=== PATIENT | male | born 1940 | race Caucasian/White ===

== ENCOUNTER → 2017-11-24 | Outpatient (REF) | payer MEDICARE, OTHER | LOC: M LAB REF 10:53 | DX: D23.12 Other benign neoplasm of skin of left eyelid, including canthus (principal) | CPT/HCPCS: 88305 ==

== ENCOUNTER → 2018-01-01 | Outpatient (CLI) | payer MEDICARE, BC, OTHER | LOC: M RAD 15:04 | DX: G45.9 Transient cerebral ischemic attack, unspecified (principal); I73.9 Peripheral vascular disease, unspecified; I25.10 Atherosclerotic heart disease of native coronary artery without angina pectoris | CPT/HCPCS: 70544 ==

== ENCOUNTER → 2019-03-03 | Outpatient (REF) | payer MEDICARE, BC, OTHER ==
[~2019-03-03] MED LIST: ACET65TA; ACIPHEX; ALLEGRA-D; ASPI81TA85 PO; BETAMET; CENTRUM SILVER PO; CENTTAB PO; CICL0.776 EX; CLOTRIMAZOLE; D AMPHETAMINE PO; DEXADRINE; DYAZ37.5; FEXO30TA; FISH500C PO; GABA-843 PO; GUAIPOW; IRBE150T12 PO; LEVA500T; LEXA1TAB; MAGN64TASA PO; MELA1CAP2 PO; METF500T13 PO; NAPR500T; NAPR500T6 PO; NIZO2SHA EX; PROT1TAB2 PO; SUCR1TA PO; TACLOIN4 EX; TACLOIN4 TOP; TESS100C; TRIAMTERENE-HCTZ PO; VIIB40TA PO; VITA500055 PO; VITAMIN D; VITAMIN D50000 UNT; XOPEAER; ZYRT10CA PO; [UNRECOGNIZED DRUG - OTHER]; [UNRECOGNIZED DRUG - OTHER] PO; [UNRECOGNIZED DRUG - OTHER] PO
[2019-03-03 16:44] LABS: C REACTIVE PROTEIN QUANTITATIV 1.81 MG/DL (0.00-0.30); RHEUMATOID FACTOR QUANT < 10.0 IU/ML (<15.0)
[2019-03-11 00:08] LABS: ANTINUCLEAR ANTIBODIES DIRECT Negative (Negative); HLA-B27 Negative (.)
== END ==
LOC: M LABDRAW1 15:18
PROVIDERS: ATTEND Physician Assistant
DX: M47.817 Spondylosis without myelopathy or radiculopathy, lumbosacral region (principal)

== ENCOUNTER → 2019-04-14 | Outpatient (REF) | payer MEDICARE, OTHER | LOC: M LABDRAW1 18:10 | PROVIDERS: ATTEND Physician Assistant | DX: M47.817 Spondylosis without myelopathy or radiculopathy, lumbosacral region (principal) ==

== ENCOUNTER → 2021-03-30 | Outpatient (CLI) | payer MEDICARE, BC, OTHER ==
[~2021-03-30] MED LIST changes: -ASPI81TA85 PO; +ASPI81TA86 PO; +BARIUM SULFATE 700 MG TABLET (E-Z-DISK) As Ordered ONE; +CICL0.7733 EX; -CICL0.776 EX; +E-Z-PAQUE 96% w/w SUSP 176GM BTL As Ordered ONE; +GABA-282 PO; -GABA-843 PO; -IRBE150T12 PO; +IRBE150T7 PO; +VARIBAR NECTAR 40% w/v 240ML SUSP BTL As Ordered ONE; +VARIBAR PUDDING 40% w/v 230ML TUBE As Ordered ONE
--- NOTE | 2021-03-30 13:51 | REP ---
INDICATION: FOOD IN BRONCHUS CAUSING ASPHYXIATION, SOB COMPARISON: Multiple the latest 01/02/2016 TECHNIQUE: Limited noncontrast enhanced standard helical technique. FINDINGS: There is no mediastinal or hilar adenopathy. There are no pleural or pericardial effusions. There is no significant change in appearance of the imaged upper abdomen. The imaged osseous structures are within normal limits for the patient's age. Evaluation of the lung lindsey shows lung field hyperexpansion and cylindrical bronchiectasis with curvilinear parenchymal densities seen throughout the lung lindsey with basilar predominance. Emphysematous changes are seen in the lung apical regions right greater than left with multiple tiny pleural blebs and possible early honeycomb lung formation. IMPRESSION: Chronic lung field changes which have remained essentially stable compared to the prior exam. No definite new abnormal nodules, masses, or opacities have developed. Although there is no evidence of an obstructing endobronchial lesion CT is extremely limited in its capacity to detect small endobronchial lesions. If that is a clinical concern then pulmonary consultation with possible bronchoscopy is suggested. <Electronically signed by Tuan Siegel > 03/30/21 [id number]
--- NOTE | 2021-03-30 14:57 | REP ---
INDICATION: FOOD IN BRONCHUS CAUSING ASPHYXIATION, SOB. COMPARISON: None. TECHNIQUE: The procedure was performed by Aleah Dumont [facility], under the direct supervision of Dr. Mayen. The procedure was performed with Sayra Tabor from speech pathology present. 5 ml aliquots of thin, pudding, mixed fruit, soft food, hard food and pill consistency barium was administered. FINDINGS: No aspiration or penetration was visualized. The detailed report of this examination will be provided by speech pathology. IMPRESSION: Unremarkable cookie swallow, a detailed report will be provided by speech pathology. 2.0 minutes of fluoroscopy time was utilized for this procedure. Some fluoroscopic images are performed with last image hold technology. These images require no additional radiation <Electronically signed by Aleah Dumont > 03/30/21 [id number] <Electronically signed by Shaan Mayen > 03/30/21 [id number]
== END ==
LOC: M RAD 13:06
PROVIDERS: ATTEND Family Medicine
DX: T17.520A Food in bronchus causing asphyxiation, initial encounter (principal); R06.02 Shortness of breath

== ENCOUNTER 2021-05-02 10:39 | Outpatient (RCR) | payer MEDICARE, BC, OTHER ==
[~2021-05-02 10:39] MED LIST changes: -BARIUM SULFATE 700 MG TABLET (E-Z-DISK) As Ordered ONE; -E-Z-PAQUE 96% w/w SUSP 176GM BTL As Ordered ONE; -VARIBAR NECTAR 40% w/v 240ML SUSP BTL As Ordered ONE; -VARIBAR PUDDING 40% w/v 230ML TUBE As Ordered ONE
== END 2021-05-05 ==
LOC: M ST 10:39
PROVIDERS: ATTEND Family Medicine
DX: R13.11 Dysphagia, oral phase (principal)

== ENCOUNTER 2021-05-24 14:30 | Outpatient (RCR) | payer MEDICARE, BC, OTHER | END 2021-06-05 | LOC: M ST 14:30 | PROVIDERS: ATTEND Family Medicine | DX: R13.11 Dysphagia, oral phase (principal) ==

== ENCOUNTER 2021-06-21 10:58 | Outpatient (RCR) | payer MEDICARE, BC, OTHER | END 2021-07-05 | LOC: M ST 10:58 | PROVIDERS: ATTEND Family Medicine | DX: R13.11 Dysphagia, oral phase (principal) ==

== ENCOUNTER → 2021-08-23 | Outpatient (CLI) | payer MEDICARE, BC, OTHER ==
--- NOTE | 2021-08-23 16:06 | REP ---
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 TECHNIQUE: Real-time sonographic evaluation of the lower extremity arteries bilaterally with Doppler FINDINGS: All numeric values represent peak systolic velocities in cm/SEC On the right: The ankle brachial index is 0.9 WEIGH BOSS: 83.1 triphasic Profunda: 67.9 biphasic SFA proximal: 77.6 triphasic SFA Mid: 71.5 triphasic SFA distal: 76.6 triphasic Popliteal: 48.5 triphasic PEDRO LUIS proximal: 49.7 biphasic Tibioperoneal trunk: 33.9 triphasic LINUX ARCHITECT proximal: 37.9 triphasic LINUX ARCHITECT distal: 34.7 biphasic PEDRO LUIS distal: 11.8 biphasic Peroneal proximal: 40.5 triphasic Peroneal distal: 30.1 triphasic On the left: The ankle brachial index is 0.96 WEIGH BOSS: 54.9 triphasic Profunda: 60.6 biphasic SFA proximal: 51.3 triphasic SFA Mid: 78.5 triphasic SFA distal: 53.5 triphasic Popliteal: 47.5 triphasic PEDRO LUIS proximal: 61.3 triphasic Tibioperoneal trunk: 49.3 triphasic LINUX ARCHITECT proximal: 53.2 triphasic LINUX ARCHITECT distal: 36.7 biphasic PEDRO LUIS distal: 35.7 biphasic Peroneal proximal: 47.7 biphasic Peroneal distal: 41.4 biphasic A stenosis was seen in the right mid LINUX ARCHITECT. IMPRESSION: As above <Electronically signed by Tuan Siegel > 08/23/21 [id number]
== END ==
LOC: M RAD 14:13
PROVIDERS: ATTEND Surgery Vascular Surgery
DX: I70.213 Atherosclerosis of native arteries of extremities with intermittent claudication, bilateral legs (principal)

== ENCOUNTER 2022-02-05 13:35 | Emergency (ER) | payer MEDICARE, BC, OTHER ==
[2022-02-05 14:05] VITALS: BP 115/66
[2022-02-05] MEDS ORDERED: LIDOCAINE 5% (LIDODERM) PATCH TD ONE (14:55)
[2022-02-05] MEDS ORDERED: LIDO5DIS41 TOP (17:43)
[2022-02-05] MEDS ORDERED: DICL20GE TP (17:43)
[2022-02-05] MEDS ORDERED: **NOTE PATIENT COMMENT** MISC XX SCH (21:00)
== END 2022-02-05 18:25 | disposition home or self-care (01) ==
LOC: EDBD 13:35 → M ED 13:35
DX: S32.010A Wedge compression fracture of first lumbar vertebra, initial encounter for closed fracture (principal); S22.080A Wedge compression fracture of T11-T12 vertebra, initial encounter for closed fracture; W01.0XXA Fall on same level from slipping, tripping and stumbling without subsequent striking against object, initial encounter; Y92.009 Unspecified place in unspecified non-institutional (private) residence as the place of occurrence of the external cause; Y93.9 Activity, unspecified; Y99.9 Unspecified external cause status; M50.322 Other cervical disc degeneration at C5-C6 level; M50.323 Other cervical disc degeneration at C6-C7 level; M51.26 Other intervertebral disc displacement, lumbar region; M51.34 Other intervertebral disc degeneration, thoracic region; M48.062 Spinal stenosis, lumbar region with neurogenic claudication; M43.06 Spondylolysis, lumbar region; I70.90 Unspecified atherosclerosis; I25.10 Atherosclerotic heart disease of native coronary artery without angina pectoris; G20 Parkinson's disease; E78.5 Hyperlipidemia, unspecified; J44.9 Chronic obstructive pulmonary disease, unspecified; G47.419 Narcolepsy without cataplexy; Z88.1 Allergy status to other antibiotic agents; Z79.899 Other long term (current) drug therapy; Z79.84 Long term (current) use of oral hypoglycemic drugs

== ENCOUNTER → 2023-01-29 | Outpatient (CLI) | payer BC, MEDICARE, OTHER ==
[~2023-01-29] MED LIST changes: +DICL20GE TP; +LIDO5DIS41 TOP
== END ==
LOC: M RAD 09:47
PROVIDERS: ATTEND Physician Assistant
DX: I77.89 Other specified disorders of arteries and arterioles (principal)